=== PATIENT | female | born 1930 | race Caucasian/White ===

== ENCOUNTER 2016-10-22 09:10 | Emergency (ER) | payer MEDICARE ==
[2016-10-22 09:50] LABS: BASOPHILS 0.2 % (0.0-2.0); EOSINOPHILS 0.2 % (0-7); HEMATOCRIT 40.2 % (36.0-48.0); HEMOGLOBIN 12.9 g/dL (12-16); IMMATURE GRANULOCYTES 0.1 % (0-5); LYMPHOCYTES 4.6 % (15-50); MCHC 32.1 g/dL (31.0-37.0); MCV 93.5 fL (80.0-100.0); MEAN PLATELET VOLUME 9.2 fL (7.4-10.4); MONOCYTES 5.9 % (2-11); PLATELET COUNT 201 10x3/uL (130-400); WBC 8.3 10x3/uL (4.8-10.8)
[2016-10-22 10:05] LABS: ALBUMIN 3.3 g/dL (3.4-5.0); ALKALINE PHOSPHATASE 77 U/L (46-116); ALT (SGPT) 19 U/L (10-68); CALC OSMOLALITY 263 mosm/kg (275-300); CARBON DIOXIDE 28.2 mmol/L (21.0-32.0); CHLORIDE - SERUM 97 mmol/L (98-107); CREATININE - SERUM 0.7 mg/dL (0.6-1.3); GLUCOSE 136 mg/dL (74-106); POTASSIUM - SERUM 3.9 mmol/L (3.5-5.1); PROTEIN - SERUM 7.6 g/dL (6.4-8.2); SODIUM 131 mmol/L (136-145); UREA NITROGEN 11 mg/dL (7-18); eGFR NON AFRICAN AMERICAN 84 mL/min (90-120)
[2017-01-16 10:27] VITALS: BMI 20.1
== END 2016-10-22 12:36 | disposition home or self-care (01) ==
LOC: D.ER 09:10
PROVIDERS: Emergency Medicine Emergency Medical Services
DX: K52.9 Noninfective gastroenteritis and colitis, unspecified (principal); K92.1 Melena; R55 Syncope and collapse; I10 Essential (primary) hypertension; J84.10 Pulmonary fibrosis, unspecified

== ENCOUNTER 2016-12-02 14:49 | Inpatient (IN) | payer MEDICARE ==
[~2016-12-02] VITALS: Ht 157.5 cm; Wt 47.9 kg
[2016-12-02 15:32] LABS: BASOPHILS 0.6 % (0.0-2.0); EOSINOPHILS 4.4 % (0-7); HEMATOCRIT 36.8 % (36.0-48.0); HEMOGLOBIN 12.1 g/dL (12-16); IMMATURE GRANULOCYTES 0.2 % (0-5); LYMPHOCYTES 6.2 % (15-50); MCH 29.6 pg (26.0-34.0); MCHC 32.9 g/dL (31.0-37.0); MEAN PLATELET VOLUME 9.1 fL (7.4-10.4); MONOCYTES 8.5 % (2-11); NEUTROPHILS 80.1 % (40-80); RBC 4.09 10x6/uL (4.00-5.40); RDW 13.2 % (11.5-14.5); WBC 8.1 10x3/uL (4.8-10.8)
[2016-12-02 15:57] LABS: PLATELET COUNT 313 10x3/uL (130-400)
[2016-12-02 16:23] LABS: ALBUMIN 2.7 g/dL (3.4-5.0); ALKALINE PHOSPHATASE 68 U/L (46-116); ALT (SGPT) 16 U/L (10-68); BILIRUBIN - TOTAL 0.46 mg/dL (0.2-1.3); CALC OSMOLALITY 272 mosm/kg (275-300); CALCIUM 8.3 mg/dL (8.5-10.1); CARBON DIOXIDE 28.3 mmol/L (21.0-32.0); CHLORIDE - SERUM 100 mmol/L (98-107); CREATININE - SERUM 0.6 mg/dL (0.6-1.3); GLUCOSE 143 mg/dL (74-106); POTASSIUM - SERUM 4.2 mmol/L (3.5-5.1); PROTEIN - SERUM 6.4 g/dL (6.4-8.2); SODIUM 135 mmol/L (136-145); UREA NITROGEN 16 mg/dL (7-18); eGFR NON AFRICAN AMERICAN > 90 mL/min (90-120)
[2016-12-02 16:31] LABS: PRO BNP 403 pg/mL (0-450)
[2016-12-02 16:45] LABS: TROPONIN-I < 0.017 ng/mL (0.000-0.060)
--- NOTE | 2016-12-02 18:47 | NUR ---
RECEIVED TO ROOM 2135 VIA STRETCHER FROM ER ALERT AND ORIENTED X3 86 Y/[address] BY [address] THAO FOR EXAC. PULMONARY FIBROSIS. ON O2 @ 5L VIA OXIMIZER, SOB NOTED, WHEEZING AND DYSPNEA NOTED. USES CANE TO AMBULATE. RT AC SL INTACT WITH NO R/S NOTED AT SITE. ASSIST TO BED W/O DIFF. ORIENTATION TO UNIT, ROOM, BED, PHONE, TV, C/L GIVEN WITH UNDERSTANDING VERBALIZED. HOB UP SR UP X2, C/L IN REACH. CONTINUE TO MONITOR.
[2016-12-02] MEDS ORDERED: PRINIVIL20 MG PO (19:15)
[2016-12-02] MEDS ORDERED: SINGULAIR10 MG PO (19:15)
[2016-12-02] MEDS ORDERED: ECOTRIN325 MG PO (19:16)
[2016-12-02] MEDS ORDERED: CALCIUM 600 +1 EAC3 PO (19:18)
[2016-12-02] MEDS ORDERED: STRESSTABS WITH1 TAB PO (19:19)
[2016-12-02 20:00] VITALS: BP 164/77
[2016-12-03] VITALS (7 sets, daily range): BP systolic 129–185; BP diastolic 64–93; Ht 157.5 cm; Wt 47.9 kg
--- NOTE | 2016-12-03 02:51 | NUR ---
EYES CLOSED, RESP UNLAB WITH BIPAP IN USE PER MD ORDERS. NO S/S OF ACUTE DISTRESS NOTED. C/L IN REACH. CONTINUE TO MONITOR.
--- NOTE | 2016-12-03 08:25 | NUR ---
LYING IN BED WITH BIPAP ON. NO DISTRESS. SOB WILL CONTINUE TO MONITOR.
--- NOTE | 2016-12-03 11:29 | NUR ---
DR HENRY HERE AND ORDERED TELEMETRY. MONITOR PLACED WITH ST @ 101
--- NOTE | 2016-12-03 16:52 | NUR ---
IV RE-SITED TO RIGHT FA WITH 22G X 1 STICK IT WAS IN THE AC AND PATIENT WAS COMPLAINING ABOUT IT BEEPING ALL THE TIME FROM HER ARM BENDING. WILL CONTINUE TO MONITOR.
--- NOTE | 2016-12-03 20:00 | NUR ---
PT RESTING IN BED. IVF AT KVO TO RFA. O2 @ 5L/OXIMISER IN PLACE. PT WITH SOB AND DYSPNEA WITH TALKING. SAYS SHE HAS TO TALK AND DO THINGS VERY SLOWLY TO KEEP FROM LOSING HER BREATH. ON LOVENOX FOR DVT PROTOCOL. PLANS FOR POSSIBLE REHAB PENDING. SEE ASSESSMENT.
[2016-12-04 00:38] VITALS: BP 167/91
--- NOTE | 2016-12-04 03:40 | NUR ---
RESTING IN BED WITH NO DISTRESS. CPOC.
[2016-12-04 05:04] VITALS: BP 137/79
[2016-12-04 05:30] LABS: BASOPHILS 0 % (0.0-2.0); EOSINOPHILS 0 % (0-7); HEMATOCRIT 32.7 % (36.0-48.0); HEMOGLOBIN 10.4 g/dL (12-16); IMMATURE GRANULOCYTES 0.3 % (0-5); LYMPHOCYTES 3.8 % (15-50); MCH 28.7 pg (26.0-34.0); MCHC 31.8 g/dL (31.0-37.0); MCV 90.3 fL (80.0-100.0); MEAN PLATELET VOLUME 8.8 fL (7.4-10.4); MONOCYTES 2.3 % (2-11); NEUTROPHILS 93.6 % (40-80); PLATELET COUNT 294 10x3/uL (130-400); RBC 3.62 10x6/uL (4.00-5.40); RDW 13.2 % (11.5-14.5); WBC 10.1 10x3/uL (4.8-10.8)
[2016-12-04 06:03] LABS: ANION GAP 13.5 mmol/L (8-16); CALCIUM 8.8 mg/dL (8.5-10.1); CARBON DIOXIDE 24.9 mmol/L (21.0-32.0); MAGNESIUM - SERUM 2.4 mg/dL (1.8-2.4); PHOSPHOROUS 3.4 mg/dL (2.5-4.9); POTASSIUM - SERUM 4.4 mmol/L (3.5-5.1)
[2016-12-04 06:32] LABS: CREATININE - SERUM 0.8 mg/dL (0.6-1.3)
--- NOTE | 2016-12-04 07:36 | NUR ---
RESTING ON LEFT SIDE WITH EYES CLOSED. RESP APPEAR EVEN AND NON LABORED. ON 5L PER OXIMIZER, BIBPAP AT BEDSIDE. ON HEART MONITOR SHOWING SR, HR 93. RIGHT FA SEEN WITH NS INFUSING AT 10 CC/HR WITHOUT PROBLEMS. WILL CONTINUE TO MONITOR.
[2016-12-04 08:33] VITALS: BP 137/88
--- NOTE | 2016-12-04 09:07 | NUR ---
PATIENT HAS BEEN MADE NPO FOR CT SCAN TODAY. THIS WAS NOT GIVEN TO ME IN REPORT THIS AM.
--- NOTE | 2016-12-04 12:00 | NUR ---
OUT OF ROOM AT THIS TIME.
--- NOTE | 2016-12-04 12:04 | NUR ---
BACK TO ROOM
[2016-12-04 12:05] VITALS: BP 158/66
--- NOTE | 2016-12-04 13:17 | NUR ---
Nutrition follow-up: Diet: Regular PO intake ~60% average of meals Labs reviewed Wt: 110# Visited with pt during breakfast; pt is very happy with meals being served. Will continue to provide food choices and honor food preferences. RDN following.
[2016-12-04 16:27] VITALS: BP 150/81
--- NOTE | 2016-12-04 18:02 | NUR ---
SITTING UP IN BED WORKING CROSSWORD PUZZLE, DENIES NEEDS AT PRESENT TIME. WILL CONTINUE TO MONITOR.
--- NOTE | 2016-12-04 18:26 | NUR ---
DR HENRY IS NOTIFIED THAT PATIENT HAS BEEN ON ASA AND LOVENOX. STATES THAT THAT IS OKAY.
--- NOTE | 2016-12-04 18:35 | NUR ---
1830-PERMIT FOR BRONCH SIGNED AND WITNESSED, PLACED ON CHART.
[2016-12-04 19:09] LABS: BASOPHILS 0 % (0.0-2.0); EOSINOPHILS 0 % (0-7); HEMATOCRIT 31.8 % (36.0-48.0); IMMATURE GRANULOCYTES 0.3 % (0-5); LYMPHOCYTES 1.9 % (15-50); MCH 28.7 pg (26.0-34.0); MCHC 31.4 g/dL (31.0-37.0); MCV 91.1 fL (80.0-100.0); MEAN PLATELET VOLUME 8.7 fL (7.4-10.4); MONOCYTES 2.3 % (2-11); NEUTROPHILS 95.5 % (40-80); PLATELET COUNT 281 10x3/uL (130-400); RBC 3.49 10x6/uL (4.00-5.40); RDW 13.4 % (11.5-14.5)
[2016-12-04 19:17] LABS: APTT 28.4 SECONDS (22.8-39.4); INR 1.1 (0.85-1.17); PROTIME 14.1 SECONDS (11.6-15.0)
--- NOTE | 2016-12-04 19:42 | NUR ---
STATION JAILER AT BEDSIDE TO OBTAIN VITALS, CALL LIGHT IN REACH. WILL CONTINUE WITH PLAN OF CARE.
[2016-12-04 20:00] VITALS: BP 163/81
--- NOTE | 2016-12-04 20:09 | NUR ---
RESTING IN BED. CURRENTLY RECEIVING UPDRAFT. ALERT ORIENTED CONVERSANT. DENIES NEEDS. NO ACUTE DISTRESS NOTED.
[2016-12-05] VITALS (10 sets, daily range): BP systolic 123–177; BP diastolic 63–87
[2016-12-05 05:19] LABS: BASOPHILS 0 % (0.0-2.0); EOSINOPHILS 0 % (0-7); HEMATOCRIT 30.5 % (36.0-48.0); HEMOGLOBIN 9.6 g/dL (12-16); IMMATURE GRANULOCYTES 0.1 % (0-5); LYMPHOCYTES 2.8 % (15-50); MCH 28.4 pg (26.0-34.0); MCHC 31.5 g/dL (31.0-37.0); MCV 90.2 fL (80.0-100.0); MEAN PLATELET VOLUME 8.9 fL (7.4-10.4); MONOCYTES 1.9 % (2-11); NEUTROPHILS 95.2 % (40-80); PLATELET COUNT 285 10x3/uL (130-400); RBC 3.38 10x6/uL (4.00-5.40); RDW 13.4 % (11.5-14.5); WBC 8.3 10x3/uL (4.8-10.8)
[2016-12-05 05:54] LABS: APTT 24.7 SECONDS (22.8-39.4); INR 1.17 (0.85-1.17); PROTIME 14.8 SECONDS (11.6-15.0)
[2016-12-05 05:57] LABS: CALC OSMOLALITY 281 mosm/kg (275-300); CALCIUM 8.4 mg/dL (8.5-10.1); CARBON DIOXIDE 27.2 mmol/L (21.0-32.0); CHLORIDE - SERUM 104 mmol/L (98-107); CREATININE - SERUM 0.6 mg/dL (0.6-1.3); GLUCOSE 137 mg/dL (74-106); MAGNESIUM - SERUM 2.2 mg/dL (1.8-2.4); PHOSPHOROUS 3.2 mg/dL (2.5-4.9); SODIUM 138 mmol/L (136-145); UREA NITROGEN 23 mg/dL (7-18); eGFR NON AFRICAN AMERICAN > 90 mL/min (90-120)
[2016-12-05 05:58] LABS: POTASSIUM - SERUM 3.7 mmol/L (3.5-5.1)
--- NOTE | 2016-12-05 07:35 | NUR ---
PATIENT WAS ON BIPAP FIRST THING THIS AM. ASSISTED HER OFF OF IT AND PLACED HER BACK ON O2 AT 2L PER NC. ASSISTED TO BSC TO VOID. RIGHT FA SEEN WITH NS INFUSING AT KVO. ON HEART MONITOR SHOWING ST, HR 104. NPO FOR BRONCH TODAY. CALL LIGHT IN REACH, WILL CONTINUE TO MONITOR.
--- NOTE | 2016-12-05 09:44 | NUR ---
0945-TO RT FOR BRONCH. PRE OP MEDS GIVEN.
--- NOTE | 2016-12-05 09:58 | NUR ---
Patient Name: WLILY LARRY Admission Status: ER Accout number: [id number] Admission Date: 12-02-2016 : 1930 Admission Diagnosis:SHORTNESS OF BREATH Attending: JOSEFINA Current LOS: 3 Anticipated DC Date: Planned Disposition: Home Primary Insurance: [employer] MARIA ALEJANDRA [employer] [facility] PF Discharge Planning Comments: * Is the patient Alert and Oriented? Yes 0 * How many steps to enter\\exit or inside your home? NONE 0 * PCP DR. SHIRLEY 0 * Pharmacy [facility] 0 * Preadmission Environment Home Alone 0 * ADLs Independent 0 * Equipment Cane Oxygen Walker 0 * Other Equipment OXYGEN AT NIGHT ONLY [facility] - MEDICAL EQUIPMENT PROVIDER 0 * List name and contact numbers for known caregivers / representatives who currently or will assist patient after discharge: BRANDY KING, FRIEND, 0 * Community resources currently utilized Private Duty Care 0 * Please name any agencies selected above. PRIVATE PAY ART CONSERVATOR, 1 DAY PER WEEK, 4 HOURS PER DAY (HOUSEKEEPING AND ERRANDS) 0 * Additional services required to return to the preadmission environment? No 0 * Can the patient safely return to the preadmission environment? Yes 0 * Has this patient been hospitalized within the prior 30 days at any hospital? No 0 CM MET WITH PT IN ROOM TO DISCUSS DISCHARGE PLANNING AND NEEDS. PT REPORTS LIVING AT HOME INDEPENDENTLY AND ALONE. PT HAS A CANE, WALKER AND HOME OXYGEN FROM [facility]. PT REPORTS SHE IS ORDERING A PORTABLE OXYGEN CONCENTRATOR FOR HERSELF FROM [employer]. PT HAS A PRIVATELY HIRED ART CONSERVATOR TO ASSIST HER NEEDED. CM DISCUSSED AVAILABILITY OF HOME HEALTH, REHAB SERVICES AND MEDICAL EQUIPMENT. PT DENIES DISCHARGE NEEDS IF SHE CAN GET BACK TO HER "NEW NORMAL" BUT WILL CONSIDER HOME HEALTH IF THE DOCTOR FEELS SHE NEEDS IT. PT REPORTS HER FRIEND WILL PICK HER UP FOR DISCHARGE HOME. PT PLANS TO DISCHARGE HOME ALONE, DENIES DISCHARGE NEEDS AT THIS TIME; PT WILL CONSIDER HOME HEALTH IF THE DOCTOR FEELS SHE NEEDS IT. CM TO FOLLOW AND ASSIST NEEDED. Freezer Tunnel Operator: George Sanders
--- NOTE | 2016-12-05 10:43 | NUR ---
1040-RETURNS FROM BRONCH, TOLERATED WELL. SLEEPY. VSS, WILL CONTINUE TO MONITOR. STILL NPO X 2 HOURS. CALL LIGHT IN USE
[2016-12-06 01:09] VITALS: BP 149/87
[2016-12-06 03:10] LABS: MYCOPLASMA PNEUMO IGG 335 U/mL (0-99)
[2016-12-06 05:23] VITALS: BP 167/82
--- NOTE | 2016-12-06 07:24 | NUR ---
RECEIVED PT REPORT. NO OTHER NEEDS AT THIS TIME. WILL CONTINUE TO MONITOR. WILL CONTINUE PLAN OF CARE.
[2016-12-06 08:09] VITALS: BP 182/92
--- NOTE | 2016-12-06 10:46 | NUR ---
PT IS ALERT. ASSESSMENT DONE PER FLOWSHEET. NO OTHER NEEDDS AT THIS TIME. WILL CONTINUE TO MONITOR.
[2016-12-06 11:36] VITALS: BP 180/102
--- NOTE | 2016-12-06 13:51 | NUR ---
PT IS ALERT. NO SS OF DISTRESS AT THIS TME. WILL CONTINUE TO MONITOR.
[2016-12-06 15:37] VITALS: BP 164/95
--- NOTE | 2016-12-06 19:30 | NUR ---
SITTING UP IN BED WATCHING TV. VOICES NO C/O PAIN OR DISCOMFORT. O2 @2L NC. RESP UNLAB. USES BSC W/O ASSISTANCE, BILLIE WELL.C/L IN REACH. CONTINUE TO MONITOR,
--- NOTE | 2016-12-06 19:50 | NUR ---
PT. SITTING IN BED WITH HOB UP FOR COMFORT WATCHING TV. PT. C/O INABILITY TO BREATH CAUSE SHE'S STUFFED UP. GOT HUMIDIFIED WATER FOR O2 TO HELP WITH DRIED NASAL PASSAGE WAYS. ASSESSMENT COMPLETED. CALL LIGHT WITHIN REACH.
[2016-12-06 20:04] VITALS: BP 165/82
[2016-12-06 20:07] LABS: AFB SPECIMEN PROCESSING Concentration (())
--- NOTE | 2016-12-06 22:04 | NUR ---
PT. IN BED WITH HOB UP FOR COMFORT AND WATCHING TV. NO VOICED NEEDS AT THIS TIME AND SHE HAS HER CALL LIGHT WITHIN REACH.
--- NOTE | 2016-12-07 00:08 | NUR ---
PT. IN BED WITH HOB UP FOR COMFORT AND LYING ON HER RIGHT SIDE. EYES ARE CLOSED AND RESP. ARE EVEN, O2 @2L/MIN VIA N/C AND CALL LIGHT WITHIN REACH.
[2016-12-07 00:30] VITALS: BP 175/93
--- NOTE | 2016-12-07 02:04 | NUR ---
PT. CONTINUES TO BE IN BED WITH HOB UP FOR COMFORT AND LYING ON HER RIGHT SIDE WITH EYES CLOSED AND RESP. DEEP AND EVEN. CALL LIGHT WITHIN REACH.
--- NOTE | 2016-12-07 04:06 | NUR ---
PT. IN BED WITH HOB UP FOR COMFORT AND IS LYING ON HER LEFT SIDE WITH EYES CLOSED AND RESP. EVEN. CALL LIGHT WITHIN REACH.
[2016-12-07 04:30] VITALS: BP 161/86
--- NOTE | 2016-12-07 07:06 | NUR ---
PT IS ALERT. RECEIVED PT REPORT. NO OTHER NEEDS AT THIS TIME. WILL CONTINUE PLAN OF CARE.
[2016-12-07 07:34] VITALS: BP 178/85
--- NOTE | 2016-12-07 10:49 | NUR ---
PT IS ALERT. ASSESSMENT DONE PER FLOWSHEET. NO OTHER NEEDS AT THIS TIME. WILL CONTINUE TO MONTIOR
[2016-12-07 11:36] VITALS: BP 157/87
[2016-12-07 15:32] VITALS: BP 162/89
[2016-12-07 20:36] VITALS: BP 172/84
--- NOTE | 2016-12-07 21:19 | NUR ---
PATIENT'S INSPECTOR ELECTROMECHANICAL, LM WEISS, , VISITED THE LATE AFTERNOON. HE REQUESTED CM TO VISIT W/ THE PATIENT SHE WANTS TO BE DISCHARGED TO [facility] AND REHAB. SHE SAID SHE IS NOT ABLE TO MANAGE AT HOME ALONE. PT' SON LIVES IN [place]. CM WENT TO VISIT W/ THE PATIENT. THE YITXAL THERAPIST HAD HER SITTING ON THE SIDE OF THE BED. HER OXYGEN WAS ON. SHE WAS STATING SHE WAS FEELING SHORT OF BREATH AND DIZZY. CM SPOKE W/ PATIENTBRIEFLY, STATING I UNDERSTOOD SHE WANTS TO GO TO [place]. SHE STATED, YES. CM WILL FOLLOW UP W/ PATIENT'S DISCHARGE PLAN TO [place] ON THURSDAY.
[2016-12-08 01:24] VITALS: BP 161/70
[2016-12-08 05:20] LABS: BASOPHILS 0 % (0.0-2.0); EOSINOPHILS 0.2 % (0-7); HEMATOCRIT 35.2 % (36.0-48.0); HEMOGLOBIN 11.1 g/dL (12-16); IMMATURE GRANULOCYTES 0.5 % (0-5); LYMPHOCYTES 7.2 % (15-50); MCH 28.3 pg (26.0-34.0); MCHC 31.5 g/dL (31.0-37.0); MCV 89.8 fL (80.0-100.0); MEAN PLATELET VOLUME 8.6 fL (7.4-10.4); MONOCYTES 1.3 % (2-11); NEUTROPHILS 90.8 % (40-80); PLATELET COUNT 276 10x3/uL (130-400); RBC 3.92 10x6/uL (4.00-5.40); RDW 13.1 % (11.5-14.5); WBC 6.2 10x3/uL (4.8-10.8)
[2016-12-08 05:56] LABS: % SATURATION 13 % (15-55); IRON 27 ug/dl (35-150); TOTAL IRON BIND CAPACITY 201 ug/dl (260-445); UNSAT IRON BIND CAPACITY 174 ug/dl (150-375)
[2016-12-08 06:00] LABS: CARBON DIOXIDE 31.7 mmol/L (21.0-32.0); CHLORIDE - SERUM 100 mmol/L (98-107); CREATININE - SERUM 0.7 mg/dL (0.6-1.3); FERRITIN 51 ng/mL (3-244); GLUCOSE 139 mg/dL (74-106); MAGNESIUM - SERUM 2.7 mg/dL (1.8-2.4); PHOSPHOROUS 4.3 mg/dL (2.5-4.9); POTASSIUM - SERUM 4.5 mmol/L (3.5-5.1); SODIUM 136 mmol/L (136-145); eGFR NON AFRICAN AMERICAN 84 mL/min (90-120)
[2016-12-08 06:09] LABS: CALC OSMOLALITY 277 mosm/kg (275-300); CALCIUM 8.3 mg/dL (8.5-10.1); UREA NITROGEN 23 mg/dL (7-18)
[2016-12-08 06:26] VITALS: BP 163/93
--- NOTE | 2016-12-08 07:36 | NUR ---
AM ROUNDING- PT SITTING UP IN BED WITH EYES OPEN CURRENTLY APPLYING MAKEUP ON. ON MONITOR SHOWING SR, HR 99. PT IS UP AD [place] AND USES BEDSIDE COMMODE. ALERT AND ORIENTED. ON 02 AT 2L VIA NC. IV SEEN TO RIGHT FOREARM THAT IS CURRENTLY SALINE LOCKED AND PATENT. 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 NO NEED AT CURRENT TIME. WILL CONTINUE TO MONITOR.
[2016-12-08 07:43] VITALS: BP 151/88
--- NOTE | 2016-12-08 11:13 | NUR ---
Patient Name: WILLY LARRY Encounter No: [id number] : 1930 Primary Insurance: [facility] MARIA ALEJANDRA ADVANTAGE [facility] PFFS Anticipated DC Date: 12-10-2016 Planned Disposition: Halfway Facility External Planned Provider: [facility], MEDICARE REHAB BED DCP follow-up note: CM RECEIVED ORDER, REVIEWED CHART, MET WITH PT IN ROOM TO DISCUSS REHAB OPTIONS. PT REPORTS SHE WANTS TO GO TO [facility] SHE HAS FRIENDS IN REHAB THERE. CHOICE SIGNED. IMPORTANT MESSAGE FROM MEDICARE PROVIDED AND EXPLAINED. CM CALLED [facility], , SPOKE TO ESPINOZA, REQUESTED REHAB BED FOR ADMIT ON THURSDAY; ESPINOZA REPORTED SHE MAY HAVE AVAILABLE REHAB BEDS. CM FAXED REFERRAL TO [facility] AT [phone]. CM WAITING ADMISSION DETERMINATION / INSURANCE AUTHORIZATION FOR REHAB AT [facility]. George Sanders, CASE MANAGEMENT
[2016-12-08 12:07] VITALS: BP 171/97
[2016-12-08 13:47] LABS: FUNGUS STAIN Final report (())
--- NOTE | 2016-12-08 15:57 | NUR ---
CALLED DR. URIBE OFFICE, SPOKE WITH HIS NURSE ANKUR. I INFORMED ANKUR THAT PTS BLOOD PRESSURES HAVE BEEN RUNNING OVER 170 SYSTOLIC AND I DIDN'T KNOW IF THERE WAS SOMETHING PRN I COULD GIVE HER. ANKUR NOTIFIED DR. THAO WHO WAS BESIDE HER, SHE STATED DR. THAO DID NOT WANT TO ADD ANYTHING. NO NEW ORDERS RECEIVED. WILL CONTINUE TO MONITOR.
[2016-12-08 16:15] VITALS: BP 172/84
--- NOTE | 2016-12-08 17:03 | NUR ---
Patient Name: WILLY LARRY Encounter No: [id number] : 1930 Primary Insurance: [facility] PFFS Anticipated DC Date: 12-10-2016 Planned Disposition: Chcf Facility External Planned Provider: [facility], MEDICARE REHAB BED DCP follow-up note: CM RECEIVED CALL FROM CASEY OF [facility], , [facility] TO ACCEPT PT FOR REHAB AND TO ADMIT ON THURSDAY; FOR DISCHARGE TO [facility] ON 12-10-16, NURSE REPORT TO BE CALLED TO [facility] AT [phone], FAX DISCHARGE INFORMATION TO [phone]. [facility] TO ARRANGE VAN TRANSPORTATION. George Sanders, CASE MANAGEMENT
--- NOTE | 2016-12-08 18:52 | NUR ---
PT SITTING UP IN BED WITH EYES OPEN WATCHING TV. NO NEED AT CURRENT TIME. WILL CONTINUE TO MONITOR.
[2016-12-08 20:00] VITALS: BP 132/74
[2016-12-09] VITALS: BP 159/85
--- NOTE | 2016-12-09 | NUR ---
NURSE ROUNDS 19:30 - PT AWAKE, ALERT, ORIENTED, DENIES ANY NEEDS. CONTINUE TO MONITOR CLOSELY.
[2016-12-09 04:00] VITALS: BP 148/80
--- NOTE | 2016-12-09 07:57 | NUR ---
AM ROUNDING- PT IS SITTING UP IN BED WITH HOB ELEVATED AT 30 DEGREES. PT IS ALERT AND ORIENTED. ON 02 AT 2L VIA NC. PT IS VERY HARD OF HEARING, HAS HEARING AIDS IN. IV SEEN TO RIGHT FOREARM THAT IS CURRENTLY SALINE LOCKED AND PATENT. BEDSIDE COMMODE AT BEDSIDE. ON MONITOR SHOWING SR, HR 78. 0725- DR. SHIRLEY IN ROOM, ASKED HIM ABOUT GETTING PT SOMETHING FOR CONSITPATION AND RESTARTING ON LOVENOX SINCE IT WAS STILL BEING HELD. DR. SHIRLEY SAID HE WOULD TAKE CARE OF IT.
[2016-12-09 08:01] VITALS: BP 160/82
[2016-12-09 12:15] VITALS: BP 155/74
--- NOTE | 2016-12-09 13:46 | NUR ---
Nutrition follow-up: Diet: Regular PO intake ~75% of meals +BM Labs reviewed Wt: 123# PO intake remains good at this time RDN following.
[2016-12-09 15:36] VITALS: BP 160/78
--- NOTE | 2016-12-09 18:09 | NUR ---
PT SITTING UP IN BED WITH EYES OPEN WATCHING TV. PT DENIES ANY NEED AT CURRENT TIME. WILL CONTINUE TO MONITOR.
--- NOTE | 2016-12-09 19:25 | NUR ---
RECEIVED REPORT , 2L, IV-RFA-SL, [id number], DENIES ANY NEEDS, BED IS LOW, SRX2, CALL LIGHT IN REACH, WILL CONTINUE TO MONITOR
[2016-12-09 21:04] VITALS: BP 150/94
[2016-12-10 01:48] VITALS: BP 190/102
--- NOTE | 2016-12-10 03:15 | NUR ---
ASSESSMENT COMPLETE, PT SLEEPING, CALL LIGHT IN REACH
--- NOTE | 2016-12-10 04:00 | NUR ---
PARKS WORKER AT BEDSIDE FOR VS. CONT TO MONITOR.
[2016-12-10 05:05] VITALS: BP 150/84
[2016-12-10] MEDS ORDERED: XOPENEX 0.0.63 MG/3 UPD (07:32)
[2016-12-10] MEDS ORDERED: MUCINEX DM ER1 EAC1 PO (07:33)
[2016-12-10] MEDS ORDERED: PULMICORT0.5 MG/21 UPD (07:33)
[2016-12-10] MEDS ORDERED: PEPCID20 MG PO (07:34)
[2016-12-10] MEDS ORDERED: TESSALON PERLE100 MG PO (07:34)
[2016-12-10] MEDS ORDERED: MEDROL DOSE PACK4 MG PO (07:35)
[2016-12-10 08:31] VITALS: BP 171/90
--- NOTE | 2016-12-10 10:20 | NUR ---
Patient Name: WILLY LARRY Encounter No: [id number] : 1930 Primary Insurance: [facility] MARIA ALEJANDRA ADVANTAGE [facility] PFFS Anticipated DC Date: 12-10-2016 Planned Disposition: Snf Facility External Planned Provider: [facility], MEDICARE REHAB BED DCP follow-up note: CM RECEIVED DISCHARGE ORDER, CALLED AND SPOKE TO CASEY AT [facility], WHO ARRANGED VAN TRANSPORT FOR 1030 HOURS. PT NOTIFIED WHO IS IN AGREEMENT WITH DISCHARGE TO [facility] TODAY, HER FRIEND WILL ASSIST WITH BRINGING PT'S BELONGINGS FROM HOSPTIAL ROOM, PT DENIES NEED OF ASSISTANCE TO NOTIFY FAMILY OR FRIENDS SHE HAS ALREADY DONE IT. BEDSIDE NURSE AND ENGLISH COMPOSITION TEACHER NURSE NOTIFIED. CM FAXED DISCHARGE INFORMATION TO [facility] AT [phone]. NURSE REPORT TO BE CALLED TO [facility] AT [phone], [facility] ARRANGED VAN TRANSPORTATION FOR 1030 AM. George Sanders, CASE MANAGEMENT
--- NOTE | 2016-12-10 10:23 | NUR ---
ALERT AND ORIENTED X4. SITTING UP IN BED. DC RT FA IV TIP INTACT. DISCHARGE INSTRUCTIONS GIVEN VERBALLY AND WRITTEN. PLAN TO DC TO [facility] VIA VAN TRANSPORTATION. REPORT CALLED TO MARIE SWAN AT [phone]. CONTINUE PLAN OF CARE AND SAFETY PRECAUTIONS.
--- NOTE | 2016-12-10 11:01 | NUR ---
TRANSPORTER ARRIVE TO ROOM TO TRANSPORT TO REHAB. ASSIST TO WHEELCHAIR. REMAIN FREE FROM INJURY.
[2016-12-23 09:19] LABS: FUNGUS CULTURE RESULT 1 Candida famata (()); FUNGUS CULTURE RESULT 3 Penicillium species (())
[2017-01-07 11:19] LABS: FUNGUS MYCOLOGY CULTURE Final report (())
--- NOTE | 2017-01-15 14:06 | CN ---
PATIENT NAME:RUTH LARRY MEDICAL RECORD: [id number] : [birth year] LOCATION:D.M2 D.2135 ADMIT DATE: 12/02/16 ACCOUNT: [id number] CONSULTING PHYSICIAN: LEO WHITING MD REFERRING PHYSICIAN: DAVID THAO MD DATE OF CONSULTATION: 12/05/2016 Rheumatology Consultation HISTORY OF PRESENT ILLNESS: Ruth Larry is an 86-year-old woman well-known to me, who I am asked to reevaluate by Dr. Broussard regarding interstitial lung disease. The patient has had interstitial lung disease with pulmonary fibrosis with abnormal chest CT with since January 2015 with scattered ground-glass opacities and alveolar densities. On several occasions, she has had a positive DOMINGO and on several occasions, has a positive anti-Scl-70. Chest was last checked in July 2016 and was still positive. Remainder of a previous DOMINGO profiles have been negative including other serological tests, including a negative ANCA. DOMINGO profile was otherwise normal in February 2015. In spite of the Scl-70, she has never had definite dysphagia or sclerodactyly or any Raynaud's. She does exhibit chronic bibasilar rales. The patient had prolonged bronchitis in August 2016, treated as an outpatient, but continued to have some shortness of breath. In October 2016, she developed gastroenteritis, nausea, hematemesis treated as an outpatient. In 7-10 days before for current admission, she had increasing shortness of breath, but denied fever, chills, sweats, cough, abdominal pain, nausea, vomiting. On admission, chest x-ray showed diffuse interstitial fibrosis and some alveolar densities. CTA performed yesterday did not show any evidence of pulmonary embolus due to extensive fibrotic changes throughout both lung barnett, most pronounced in the lower lobes. Not significantly changed since previous CT and some patchy ground-glass opacities throughout both lung barnett. The patient underwent bronchoscopy today showing some tracheal inflammation and small bilateral mucous plugs. There was also seen in the right upper and lower lobes. The patient is currently being treated with Solu-Medrol 60 mg every 8 hours, Zithromax 500 mg IV daily, Rocephin 1 gram IV daily, Tessalon 100 mg p.r.n. Overall, she thinks maybe slight improvement. She denies dysphagia, reflux, abdominal pain, nausea, and vomiting. On admission, white count normal, hemoglobin 12.1 and creatinine 0.6. She has multiple serologies pending for infection. HOME MEDICATIONS: Oxygen h.s., lisinopril 20 mg daily, Singulair 10 mg daily, Asmanex inhaler b.i.d., Claritin or Love daily, enteric-coated aspirin 325 mg h.s., vitamin D 50,000 units monthly, multivitamin daily, calcium 600 mg with CONSULT REPORT [id number] RUTH LARRY vitamin D t.i.d., vitamin B 3000 mcg daily, Flonase once daily, vitamin C 500 mg daily, fish oil 1-2 in the evening, ipratropium nasal spray. CURRENT MEDICATIONS: Mucinex 1 b.i.d., Xopenex t.i.d., Tessalon 100 mg q.i.d., albuterol, Pepcid 20 mg b.i.d., Pulmicort 0.5 mg b.i.d., Solu-Medrol 60 mg every 8 hours, Xopenex every 6 hours, Atrovent updrafts every 6 hours, Zithromax 500 mg daily, Rocephin 1 gram daily, Lovenox 40 mg subQ daily, aspirin 325 mg daily, and Singulair 10 mg daily. PAST MEDICAL HISTORY: She has no known drug allergies. She diagnosed pulmonary fibrosis in January 2015. She had hysterectomy for precancerous condition, bunionectomy, and rule out fracture of her pelvis. SOCIAL HISTORY: She has never smoked. She rarely drink alcohol in the past. 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 FAMILY HISTORY: Father of colon cancer at age 93. Mother of crippling rheumatoid arthritis at age 77. Three of her siblings are of unreported cause, possibly history of cancer of the breast and colon, hypertension. Grandfather had TB. REVIEW OF SYSTEMS: She denies any recent weight loss, headache, diplopia, dysphagia, frequent reflux, abdominal bloating, constipation, dysuria, urgency, dependent edema. PHYSICAL EXAMINATION: VITAL SIGNS: Blood pressure 150/81, pulse 112 and regular, respirations 21, temperature of 97.9, and O2 saturation 99% on 3 liters. GENERAL: This is an elderly woman, in no acute distress. She has some tachypnea. HEENT: Head: Normal female hair pattern. Eyes: Conjunctivae are clear. Mouth somewhat dry. NECK: Supple. There is no adenopathy in neck, axilla or inguinal areas. Parotid glands not enlarged. LUNGS: Reveal stable bibasilar crackling and rales to scapular tips posteriorly and some anterior. There is no wheeze or rub. CARDIOVASCULAR: S1, S2 are normal without gallop, murmur or rub. Carotid arteries 2+ without delay or bruit. Radial pulse 2+, pedal pulses 1+. There is no dependent edema. ABDOMEN: Soft, slightly full, nontender without mass, organomegaly or guarding. MUSCULOSKELETAL: All joints of the upper and lower extremities have excellent range of motion without discomfort or swelling. SKIN: Without sclerodactyly, purpura, petechiae. She has 1 pinpoint telangiectasia of one finger. DIAGNOSES: 1. Interstitial lung disease. A. 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 B. Abnormal chest CT with pulmonary fibrosis and ground glass changes on CT since 2014. C. Repeatedly positive anti-Scl-70. D. No evidence of sclerodactyly. E. No history of Raynaud. F. No definite evidence of esophageal dysphagia. 2. Recent increasing shortness of breath without any cough, fever or chills. CONSULT REPORT [id number] RUTH LARRY 3. Abnormal bronchoscopy with signs of inflammation, mucous plugs more suggestive of intrabronchial inflammatory condition, rather than worsening interstitial lung disease. 4. Episode of gastroenteritis, October 2016. RECOMMENDATIONS: 1. Agree with continued broad-spectrum antibiotics. 2. Continue with high dose steroids. If improves, anticipated gradually tapered. 3. Observe response. Continue bronchodilators. 4. Await culture and serological results for infection. 5. Monitor for clinical course. If does not improve, we will have to consider whether or not her current problem is exacerbation of interstitial lung disease with ____ connective tissue disease. DISCUSSION: The patient's clinical course is more suggestive of persistent intrabronchial inflammation and may respond to current treatment. This less likely is represents a flare of her underlying connective tissue disease. Hopefully, she can be on a short tapering course of steroids. Very reluctant to consider if amenable to chronic corticosteroids or immunosuppressor drugs which would be fraught with side effects at her advanced age and significant risk complications including infections. TRANSINT:[id number] Voice Confirmation ID: [id number] DOCUMENT ID: [id number] LEO WHITING MD Manually Signed by LEO WHITING CC: [id number] DICTATION DATE: 12/05/161903 FIELD HOCKEY AND LACROSSE COACH: 12/06/16 0039 ADM IN [facility] [address] [id number]
[2017-01-23 11:18] LABS: ACID FAST CULTURE Negative (()); ACID FAST SMEAR Negative (())
== END 2016-12-10 11:03 | DRG 196 ==
LOC: D.ER 14:49 → D.M2 18:14
PROVIDERS: Emergency Medicine; Family Medicine; Internal Medicine Pulmonary Disease; ADMIT Family Medicine
PROC: 5A09457 Assistance with Respiratory Ventilation, 24-96 Consecutive Hours, Continuous Positive Airway Pressure (ICD-10-PCS; principal; 2016-12-03)
PROC: 0BB78ZX Excision of Left Main Bronchus, Via Natural or Artificial Opening Endoscopic, Diagnostic (ICD-10-PCS; 2016-12-05)
PROC: 0BB38ZX Excision of Right Main Bronchus, Via Natural or Artificial Opening Endoscopic, Diagnostic (ICD-10-PCS; 2016-12-05)
DX: J84.10 Pulmonary fibrosis, unspecified (principal); J96.21 Acute and chronic respiratory failure with hypoxia; J44.9 Chronic obstructive pulmonary disease, unspecified; R00.0 Tachycardia, unspecified; J30.9 Allergic rhinitis, unspecified; I08.2 Rheumatic disorders of both aortic and tricuspid valves; M34.9 Systemic sclerosis, unspecified; I10 Essential (primary) hypertension; D64.9 Anemia, unspecified

== ENCOUNTER 2017-01-15 10:02 | Inpatient (IN) | payer MEDICARE ==
[~2017-01-15] VITALS: Ht 157.5 cm; Wt 51.5 kg
[~2017-01-15 10:02] MED LIST: CALCIUM 600 +1 EAC3 PO; ECOTRIN325 MG PO; MEDROL DOSE PACK4 MG PO; MUCINEX DM ER1 EAC1 PO; PEPCID20 MG PO; PRINIVIL20 MG PO; PULMICORT0.5 MG/21 UPD; SINGULAIR10 MG PO; STRESSTABS WITH1 TAB PO; TESSALON PERLE100 MG PO; XOPENEX 0.0.63 MG/3 UPD
[2017-01-15 10:39] LABS: BASOPHILS 0.9 % (0.0-2.0); EOSINOPHILS 5.4 % (0-7); HEMATOCRIT 37.5 % (36.0-48.0); HEMOGLOBIN 11.8 g/dL (12-16); IMMATURE GRANULOCYTES 0.2 % (0-5); LYMPHOCYTES 10.7 % (15-50); MCH 28.4 pg (26.0-34.0); MCHC 31.5 g/dL (31.0-37.0); MCV 90.1 fL (80.0-100.0); MEAN PLATELET VOLUME 9.3 fL (7.4-10.4); MONOCYTES 6.9 % (2-11); NEUTROPHILS 75.9 % (40-80); PLATELET COUNT 224 10x3/uL (130-400); RBC 4.16 10x6/uL (4.00-5.40); RDW 14.4 % (11.5-14.5); WBC 6.6 10x3/uL (4.8-10.8)
[2017-01-15 11:07] LABS: ALBUMIN 3.1 g/dL (3.4-5.0); ALKALINE PHOSPHATASE 64 U/L (46-116); ALT (SGPT) 17 U/L (10-68); BILIRUBIN - TOTAL 0.58 mg/dL (0.2-1.3); CALC OSMOLALITY 279 mosm/kg (275-300); CALCIUM 9.1 mg/dL (8.5-10.1); CARBON DIOXIDE 28.9 mmol/L (21.0-32.0); CHLORIDE - SERUM 103 mmol/L (98-107); CREATININE - SERUM 0.7 mg/dL (0.6-1.3); GLUCOSE 100 mg/dL (74-106); PROTEIN - SERUM 6.8 g/dL (6.4-8.2); SODIUM 139 mmol/L (136-145); UREA NITROGEN 17 mg/dL (7-18); eGFR NON AFRICAN AMERICAN 84 mL/min (90-120)
[2017-01-15 11:16] LABS: CREATINE KINASE 39 UL (21-215); PRO BNP 189 pg/mL (0-450); TROPONIN-I < 0.017 ng/mL (0.000-0.060)
[2017-01-15 15:22] VITALS: BP 141/68; BMI 21.0
[2017-01-15 15:30] VITALS: BP 143/68
--- NOTE | 2017-01-15 15:35 | NUR ---
PATIENT ARRIVED FROM ER. SOB WITH WHEEZING. O2 ON @ 3L. SEE ASSESSMENT FOR FURTHER INFO. WILL CONTINUE TO MONITOR
--- NOTE | 2017-01-15 16:41 | NUR ---
UP IN BED READING - DENIES ANY NEEDS
--- NOTE | 2017-01-15 19:44 | NUR ---
RESUMED CARE OF PT, 02-2L, IV-R. AC-SL, [id number], PT IS VISITING WITH FRIEND, DENIES ANY NEEDS, BED IS LOW, SRX2, CALL LIGHT IN REACH, WILL CONTINUE TO MONITOR
[2017-01-15 20:00] VITALS: BP 150/78
[2017-01-16] VITALS: BP 157/86
[2017-01-16 04:00] VITALS: BP 155/82
--- NOTE | 2017-01-16 05:15 | NUR ---
TAIL BOARD MAN AT BEDSIDE TO OBTAIN VITALS, CALL LIGHT IN REACH. WILL CONTINUE WITH PLAN OF CARE.
--- NOTE | 2017-01-16 07:49 | NUR ---
RECEIVED REPORT FROM NIGHT NURSE. PATIENT LYING QUIETLY IN BED . NO APPARENT DISTRESS. MONITOR SHOWS ST @ RATE OF 111. WILL CONTINUETO MONITOR
[2017-01-16 08:31] VITALS: BP 129/89
[2017-01-16 10:27] VITALS: Ht 157.5 cm; Wt 51.5 kg
--- NOTE | 2017-01-16 12:34 | NUR ---
PATIENT VISITING WITH FAMILY AND EATING LUNCH. WILL CONTINUE TO MONITOR.
[2017-01-16 12:47] VITALS: BP 138/66
--- NOTE | 2017-01-16 14:19 | NUR ---
AMBULATING IN COLIN WITH PT. BILLIE WELL. BUT SOB. WILL CONTINUE TO MONITOR.
--- NOTE | 2017-01-16 17:29 | NUR ---
Patient Name: WILLY LARRY Admission Status: ER Accout number: [id number] Admission Date: 01-15-2017 : 1930 Admission Diagnosis:DYSPNEA, UNSPECIFIED Attending: OZ Current LOS: 1 Anticipated DC Date: 01-19-2017 Planned Disposition: Half-Way Facility Primary Insurance: [facility] PLANNED EXTERNAL PROVIDER: [facility], MEDICARE REHAB BED Discharge Planning Comments: * Is the patient Alert and Oriented? Yes 0 * How many steps to enter\exit or inside your home? NONE 0 * PCP DR. SHIRLEY 0 * Pharmacy [facility] 0 * Preadmission Environment Home Alone 0 * ADLs Independent 0 * Equipment Cane Oxygen Walker 0 * Other Equipment HOME AND PORTABLE OXYGEN [facility] -MEDICAL EQUIPMENT PROVIDER PREFERENCE 0 * List name and contact numbers for known caregivers / representatives who currently or will assist patient after discharge: NABIL TERRAZAS, FRIEND, 0 * Community resources currently utilized Home Health 0 * Please name any agencies selected above. [facility], 0 * Additional services required to return to the preadmission environment? No 0 * Can the patient safely return to the preadmission environment? Yes 0 * Has this patient been hospitalized within the prior 30 days at any hospital? Yes 0 CM MET WITH PT IN ROOM TO DISCUSS DISCHARGE PLANNING AND NEEDS. PT REPORTS LIVING AT HOME INDEPENDENTLY AND ALONE. PT HAS ALL NEEDED MEDICAL EQUIPMENT FROM [facility]. PT HAS HOME HEALTH FROM [facility]. CM DISCUSSED AVAILABILITY OF HOME HEALTH, REHAB SERVICES AND MEDICAL EQUIPMENT. PT REPORTS PLAN TO ENTER INTO [facility] AT DISCHARGE AND REHAB UNTIL HER SON ARRIVES FROM OUT OF STATE TO ASSIST HER AT THE END OF NEXT WEEK. CHOICE SIGNED FOR [facility]. CM RECEIVED CALL FROM CASEY OF [facility], , WHO REPORTS THAT PT JUST LEFT REHAB ON 01-02-17; SHE CAN ACCEPT PT FOR REHAB ON 01-19-17. CM FAXED REFERRAL INFORMATION TO [facility] AT [phone]. [facility] PLANS TO ACCEPT PT ON 01-19-17, FOR REHAB. FOR DISCHARGE, NURSE REPORT TO BE CALLED TO [facility], ; FAX DISCHARGE INFORMATION TO [facility], . [facility] TO ARRANGE VAN TRANSPORT. Flight Radio Operator: George Sanders
[2017-01-16 18:07] VITALS: BP 127/64
[2017-01-16 19:00] VITALS: BP 142/74
--- NOTE | 2017-01-16 19:40 | NUR ---
RECEIVED REPORT FROM DAY NURSE, PT DENIES ANY NEEDS, BED IS LOW, CALL LIGHT IN REACH, WILL CONTINUE TO MONITOR
[2017-01-17] VITALS: BP 142/76
--- NOTE | 2017-01-17 01:21 | NUR ---
PT SLEEPING, BED IS LOW, SRX2, CALL LIGHT IN REACH
[2017-01-17 05:07] VITALS: BP 138/83
--- NOTE | 2017-01-17 07:38 | NUR ---
PT IN BED SITTING UP WATCHING TV AND PUTTING ON MAKEUP. IV TO RIGHT AC SALINE LOCKED. O2 AT 2 LITERS PER NC. DENIES PAIN AT THIS TIME. C/L IN REACH, WILL CONT TO MONITOR.
[2017-01-17 08:08] VITALS: BP 157/77
--- NOTE | 2017-01-17 10:18 | NUR ---
UP IN CHAIR WITH CALL LIGHT IN REACH. RESP UL ON . WILL CONT. PLAN OF CARE.
--- NOTE | 2017-01-17 10:20 | NUR ---
PT WAS UP IN CHAIR TAKING HER MEDICINE, STARTED HAVING COUGHING SPELL. PT WAS TRING TO SIPPING WATER AND LOOK FOR COUGH DROP, SHE STRTED GAGGING AND EVENTLY VOMITING. WAS ABLE TO GRAB TRASH TO KEEP FROM MAKING MESS. SHE WANTED TO HOLD OFF ON OTHER MEDICINE FOR A WHILE.
[2017-01-17 11:57] VITALS: BP 197/80
--- NOTE | 2017-01-17 14:35 | NUR ---
PT IN BED WORKING CROSSWORD PUZZLES. UP TO BSC WITH SBA. DENIES PAIN AT THIS TIME. WANTS TAKE NAP.WILL MONITOR.
[2017-01-17 16:07] VITALS: BP 132/76
--- NOTE | 2017-01-17 19:30 | NUR ---
SITTING UP IN BED WATCHING TV, UP TO BSC W/O DIFF. BILLIE WELL. VOICES NO C/O PAIN OR DISCOMFORT AT THIS TIME. O2 @ 3L VIA NC IN USE. TELEMETRY SHOWING HR ST, RT AC SL INTACT WITH NO R/S NOTED AT SITE. HOB UP SR UP X2, C/L IN REACH. CONTINUE TO MONITOR.
[2017-01-17 21:16] VITALS: BP 136/69
[2017-01-18 00:30] VITALS: BP 162/83
--- NOTE | 2017-01-18 02:21 | NUR ---
EYES CLOSED, RESP UNLAB WITH O2 @ 3L NC IN USE, NO S/S OF SOB NOTED AT THIS TIME. HOB UP SR UP X1, C/L IN REACH.CONTINUE TO MONITOR.
[2017-01-18 04:30] VITALS: BP 138/77
[2017-01-18 07:54] VITALS: BP 143/85
[2017-01-18 12:22] VITALS: BP 138/73
[2017-01-18 15:45] VITALS: BP 158/76
--- NOTE | 2017-01-18 19:30 | NUR ---
SITTING UP IN BED, ON PHONE, RESP UNLAB WITH O2 @ 3L NC IN PLACE, UP AD [place] TO BSC W/O DIFF. TELEMETRY IN PLACE SHOWING HR ST PER VIDEO ENGINEER. ON LOVENOX INJECTIONS TO PREVENT BLOOD CLOTS. HOB UP SR UP X2, C/L IN REACH. CONTINUE TO MONITOR.
[2017-01-18 20:00] VITALS: BP 112/90
[2017-01-19] VITALS: BP 177/99
--- NOTE | 2017-01-19 00:30 | NUR ---
EYES CLOSED, RESP UNLAB WITH NO S/S OF ACUTE DISTRESS NOTED. HOB UP SR UP X2, C/L IN REACH, CONTINUE TO MONITOR. TELEMETRY SHOWING HR 61 AFIB PER MONITOR,
--- NOTE | 2017-01-19 07:26 | NUR ---
AM ROUNDING- RECEIVED REPORT FROM MARIE RODAS (SPLICER OPERATOR NURSE). PT IS CURRENTLY LAYING IN BED ON BACK WITH HOB ELEVATED AT [address] SHIRLEY IN ROOM CURRENTLY. ON MONITOR SHOWING SR, HR 92. ON 02 AT 3L VIA NC. IV SEEN TO RIGHT AC THAT IS CURRENTLY SALINE LOCKED. ON LOVENOX INJECTION FOR DVT PREVENTON PER REPORT. UP AD [place]. ALERT AND ORIENTED. NO NEED AT CURRENT TIME. PT IS AWAITING D/C. WILL CONTINUE TO MONITOR AND CONTINUE WITH PLAN OF CARE.
[2017-01-19] MEDS ORDERED: VIBRAMYCIN 100100 MG PO (07:44)
--- NOTE | 2017-01-19 07:56 | NUR ---
0715- AM ROUNDING- RECEIVED REPORT FROM DENNIS RODAS (SENIOR ENERGY CONSULTANT NURSE). PT IS CURRENTLY LAYING IN BED ON BACK WITH HOB ELEVATED AT [address] SHIRLEY IS CURRENTLY IN ROOM. ON MONITOR SHOWING SR, HR 92. ON 02 AT 3L VIA NC. IV SEEN TO RIGHT AC THAT IS CURRENTLY SALINE LOCKED. ON LOVENOX INJECTION FOR DVT PREVENTION. PT IS UP AD [place]. ALERT AND ORIENTED. NO NEED AT CURRENT TIME. PT IS AWAITING D/C. WILL CONTINUE TO MONITOR AND CONTINUE WITH PLAN OF CARE.
[2017-01-19 08:50] VITALS: BP 144/83
--- NOTE | 2017-01-19 09:53 | NUR ---
Patient Name: WILLY LARRY Encounter No: [id number] : 1930 Primary Insurance: [facility] ADVANTAGE [facility] PFF[facility] Anticipated DC Date: 01-19-2017 Planned Disposition: Residential Facility External Planned Provider: [facility], MEDICARE REHAB BED DCP follow-up note: CM RECEIVED DISCHARGE ORDER, MET WITH PT IN ROOM WHO IS IN AGREEMENT WITH DISCHARGE TODAY TO [facility], REQUESTED VAN FINANCE ATTORNEY. IMPORTANT MESSAGE FROM MEDICARE PROVIDED AND EXPLAINED. CM UNABLE TO ARRANGE THE WALKER WITH SEAT FOR HOME PT IS GOING TO REHAB. CM EXPLAINED TO PT THAT ALL HOME NEEDS WILL BE ARRANGED FROM REHAB WHEN SHE DISCHARGES FROM THERE. PT REPORTED UNDERSTANDING. CM CALLED AND SPOKE TO HIREN OF [facility], , WHO REPORTS THAT [facility] WILL ACCEPT PT TODAY. [employer] FAXED DISCHARGE INFORMATION TO [facility] AT [phone]. HIREN WILL CALL SHORTLY WITH VAN FINANCE ATTORNEY TIME. FOR DISCHARGE, NURSE REPORT TO BE CALLED TO [facility], ; [facility] TO ARRANGE VAN TRANSPORT AND WILL CALL WITH VAN FINANCE ATTORNEY TIME. Backrest Assembler: George Sanders
--- NOTE | 2017-01-19 11:22 | NUR ---
1015- D/C INSTRUCTIONS EXPLAINED TO PT. D/C PAPERWORK SIGNED BY PT AND PLACED IN CHART. HEART MONITOR REMOVED. IV TO RIGHT AC REMOVED WITH CATH TIP INTACT, COVERED WITH 2X2 GUAZE PADS AND SECURED WITH TAPE. TOLERATED WELL. CLINTON LOWERY GATHERED PTS BELONGINGS. [facility]. WILL CONTINUE TO MONITOR. 1115- PT D/C VIA [facility] WITH [facility] STAFF MEMBER ON AT 2L.
[2017-01-20 03:10] LABS: MYCOPLASMA PNEUMO IGG 133 U/mL (0-99)
== END 2017-01-19 11:28 | DRG 196 ==
LOC: D.ER 10:02 → D.SDCHOLD 12:36 → D.M2 12:36
PROVIDERS: Family Medicine; Internal Medicine Pulmonary Disease; ADMIT Family Medicine
DX: J84.10 Pulmonary fibrosis, unspecified (principal); J96.21 Acute and chronic respiratory failure with hypoxia; I10 Essential (primary) hypertension; M34.9 Systemic sclerosis, unspecified; I08.2 Rheumatic disorders of both aortic and tricuspid valves

== ENCOUNTER 2017-04-19 12:45 | Inpatient (IN) | payer MEDICARE ==
[~2017-04-19] VITALS: Ht 157.5 cm; Wt 45.4 kg
[~2017-04-19 12:45] MED LIST changes: +VIBRAMYCIN 100100 MG PO
[2017-04-19 15:22] LABS: BASOPHILS 0.1 % (0-2); EOSINOPHILS 0.1 % (0-7); HEMATOCRIT 34.7 % (36.0-48.0); HEMOGLOBIN 10.8 g/dL (12-16); IMMATURE GRANULOCYTES 0.2 % (0-5); LYMPHOCYTES 3.8 % (15-50); MCH 27.6 pg (26.0-34.0); MCHC 31.1 g/dL (31.0-37.0); MCV 88.7 fL (80.0-100.0); MEAN PLATELET VOLUME 8.5 fL (7.4-10.4); MONOCYTES 5.1 % (2-11); NEUTROPHILS 90.7 % (40-80); PLATELET COUNT 233 10x3/uL (130-400); RBC 3.91 10x6/uL (4.00-5.40); RDW 16.9 % (11.5-14.5); WBC 8.7 10x3/uL (4.8-10.8)
[2017-04-19 15:36] LABS: ALBUMIN 2.6 g/dL (3.4-5.0); ALKALINE PHOSPHATASE 67 U/L (46-116); ALT (SGPT) 19 U/L (10-68); CALC OSMOLALITY 269 mosm/kg (275-300); CARBON DIOXIDE 33.9 mmol/L (21.0-32.0); CHLORIDE - SERUM 97 mmol/L (98-107); CREATININE - SERUM 1.3 mg/dL (0.6-1.3); POTASSIUM - SERUM 4.6 mmol/L (3.5-5.1); SODIUM 133 mmol/L (136-145); UREA NITROGEN 15 mg/dL (7-18); eGFR NON AFRICAN AMERICAN 41 mL/min (90-120)
[2017-04-19 15:37] LABS: GLUCOSE 156 mg/dL (74-106)
[2017-04-19 15:49] LABS: CKMB 1.1 U/L (0.0-3.6); CREATINE KINASE 33 UL (21-215); PRO BNP 879 pg/mL (0-450); TROPONIN-I < 0.017 ng/mL (0.000-0.060)
[2017-04-19] MEDS ORDERED: PROAIR HFA8.5 GM INH (18:32)
--- NOTE | 2017-04-19 18:45 | NUR ---
RECEIVED TO ROOM 2215 FROM ER VIA BED. TRANSFERRED TO BED. CALL LIGHT IN REACH.
[2017-04-19 20:00] VITALS: BP 138/78
--- NOTE | 2017-04-19 20:00 | NUR ---
ASSESSMENT PER ADMIT PACK.FAMILY/CAREGIVER TO TAKE HER RINGS AND WATCH HOME. PT WILL KEEP HER HEARING AIDS HERE.FALL PREVENTION INITIATED WITH PRECIOUS HERNANDEZ.CALL LIGHT IN REACH
[2017-04-19 20:49] VITALS: BP 138/78; BMI 18.3
[2017-04-20] VITALS: BP 144/72
--- NOTE | 2017-04-20 00:11 | NUR ---
STILL AWAKE WITHOUUT DISTRESS.SHE HAS BEEN ON PHONE MOST OF NIGHT.MONITOR FOR NEEDS.DOOR OPEN
--- NOTE | 2017-04-20 03:04 | NUR ---
RESTING WITHOUT SIGNS OF DISTRESS.CONT TO MONITOR.DOOR OPEN
[2017-04-20 04:00] VITALS: BP 112/71
[2017-04-20 04:56] LABS: BASOPHILS 0.3 % (0-2); EOSINOPHILS 0.8 % (0-7); HEMATOCRIT 30.2 % (36.0-48.0); HEMOGLOBIN 9.5 g/dL (12-16); IMMATURE GRANULOCYTES 0.2 % (0-5); LYMPHOCYTES 7.4 % (15-50); MCH 27.4 pg (26.0-34.0); MCHC 31.5 g/dL (31.0-37.0); MEAN PLATELET VOLUME 8.8 fL (7.4-10.4); MONOCYTES 8.3 % (2-11); PLATELET COUNT 211 10x3/uL (130-400); RBC 3.47 10x6/uL (4.00-5.40); RDW 16.9 % (11.5-14.5)
[2017-04-20 05:00] LABS: WBC 6.2 10x3/uL (4.8-10.8)
[2017-04-20 05:19] LABS: CALCIUM 8.9 mg/dL (8.5-10.1); CARBON DIOXIDE 30.2 mmol/L (21.0-32.0); CREATININE - SERUM 1.2 mg/dL (0.6-1.3); POTASSIUM - SERUM 4.2 mmol/L (3.5-5.1)
--- NOTE | 2017-04-20 06:11 | NUR ---
HAS REMAINED WITHOUT DISTRESS DURING NIGHT.REMAINS WITHOUT CHANGE FROM INITIAL SHIFT ASSESSMENT.CONT PLAN OF CARE
--- NOTE | 2017-04-20 07:30 | NUR ---
PATIENT RECEIVED ALERT IN HIGH GUIDRY POSITION WATCHING TV. NO SIGNS OF DISTRESS NOTED. DENIES NEEDS. SIDE RAILS UP X2. BED IN LOW POSITION. CALL LIGHT IN REACH.
--- NOTE | 2017-04-20 08:43 | NUR ---
PATIENT ALERT IN HIGH GUIDRY POSITION. NO SIGNS OF DISTRESS NOTED. SCHEDULED MEDICATION ADMINISTERED. DENIES NEEDS. SIDE RAILS UP X2. BED IN LOW POSITION. CALL LIGHT IN REACH.
[2017-04-20 09:35] VITALS: BP 157/82
[2017-04-20 11:49] VITALS: BP 135/78
--- NOTE | 2017-04-20 12:07 | NUR ---
PATIENT IN MID GUIDRY POSITION RESTING WITH EYES CLOSED. RESPIRATIONS EVEN AND UNLABORED. WAKES EASY. SCHEDULED MEDICATION ADMINISTERED. SIDE RAILS UP X2. BED IN LOW POSITION. CALL LIGHT IN REACH. DENIES NEEDS.
[2017-04-20 13:20] VITALS: Ht 157.5 cm; Wt 45.4 kg
--- NOTE | 2017-04-20 15:40 | NUR ---
PATIENT ALERT IN BED VISITING WITH GUEST. NO SIGNS OF DISTRESS NOTED. SIDE RAILS UP X2. BED IN LOW POSITION. CALL LIGHT IN REACH.
[2017-04-20 16:29] VITALS: BP 120/69
[2017-04-20 20:00] VITALS: BP 135/78
[2017-04-21] VITALS: BP 129/70
--- NOTE | 2017-04-21 00:35 | NUR ---
ASSISTED THE PATIENT ON AND OFF OF THE BSC AND SET THE PATIENT UP TO BRUSH HER TEETH. PATIENT DENIES OTHER NEEDS AT THIS TIME. BED IN THE LOWEST POSITION AND CALL LIGHT WITHIN REACH. ENCOURAGED THE PATIENT TO CALL IF SHE HAS NEEDS.
[2017-04-21 04:00] VITALS: BP 139/80
[2017-04-21 05:37] LABS: BASOPHILS 0 % (0-2); EOSINOPHILS 0 % (0-7); HEMATOCRIT 28.2 % (36.0-48.0); IMMATURE GRANULOCYTES 0.2 % (0-5); LYMPHOCYTES 5.9 % (15-50); MCHC 31.9 g/dL (31.0-37.0); MCV 87.9 fL (80.0-100.0); MEAN PLATELET VOLUME 9.1 fL (7.4-10.4); MONOCYTES 3.1 % (2-11); NEUTROPHILS 90.8 % (40-80); PLATELET COUNT 209 10x3/uL (130-400); RBC 3.21 10x6/uL (4.00-5.40); RDW 16.9 % (11.5-14.5)
[2017-04-21 05:41] LABS: WBC 4.6 10x3/uL (4.8-10.8)
[2017-04-21 06:01] LABS: ANION GAP 9.8 mmol/L (8-16); CALCIUM 8.4 mg/dL (8.5-10.1); CARBON DIOXIDE 29.6 mmol/L (21.0-32.0); CREATININE - SERUM 1.2 mg/dL (0.6-1.3); MAGNESIUM - SERUM 2.2 mg/dL (1.8-2.4); PHOSPHOROUS 2.8 mg/dL (2.5-4.9); POTASSIUM - SERUM 4.4 mmol/L (3.5-5.1)
--- NOTE | 2017-04-21 07:00 | NUR ---
PATIENT RECEIVED ALERT IN MID GUIDRY POSITION. NO SIGNS OF DISTRESS NOTED. DENIES NEEDS. SIDE RAILS UP X2. BED IN LOW POSITION. CALL LIGHT IN REACH.
--- NOTE | 2017-04-21 08:05 | NUR ---
PATIENT ALERT IN BED. NO SIGNS OF DISTRESS NOTED. SCHEDULED MEDICATION ADMINISTERED. SIDE RAILS UP X2. BED IN LOW POSITION. CALL LIGHT IN REACH.
[2017-04-21 09:30] VITALS: BP 151/76
[2017-04-21 10:25] LABS: % SATURATION 8 % (15-55); IRON 15 ug/dl (35-150); TOTAL IRON BIND CAPACITY 168 ug/dl (260-445); UNSAT IRON BIND CAPACITY 153 ug/dl (150-375)
[2017-04-21 10:46] LABS: FERRITIN 108 ng/mL (3-244); LDH 200 U/L (81-234)
--- NOTE | 2017-04-21 11:00 | NUR ---
IV TO LEFT FOREARM SALINE LOCKED. PATIENT ALERT IN BED. NO SIGNS OF DISTRESS NOTED. SIDE RAILS UP X2. BED IN LOW POSITION. CALL LIGHT IN REACH.
[2017-04-21 13:54] VITALS: BP 140/63
--- NOTE | 2017-04-21 14:24 | NUR ---
PATIENT ALERT IN HIGH GUIDRY POSITION. NO SIGNS OF DISTRESS NOTED. DENIES NEEDS. SIDE RAILS UP X2. BED IN LOW POSITION. CALL LIGHT IN REACH.
[2017-04-21 16:23] VITALS: BP 127/70
--- NOTE | 2017-04-21 16:35 | NUR ---
PATIENT ALERT IN BED AND VERY SOB. O2 SAT REMAINING BETWEEN 80% TO 88% 0XYGEN 5L ON NASAL CANNULA. DR HENRY NOTIFIED NEW ORDERS RECEIVED. RT AT BEDSIDE. 15L OXYMIZER PLACED ON PATIENT. O2 SAT INCREASED TO 98% WILL CONTINUE TO MONITOR.
--- NOTE | 2017-04-21 17:20 | NUR ---
PATIENT 96% ON 7L OXYMIZER. IV ABX INITIATED PER ORDERS. IV TO LEFT FOREARM PATENT. FLUSHES EASY, NO REDNESS OR INFLAMMATION NOTED. SIDE RAILS UP X2. BED IN LOW POSITION. CALL LIGHT IN REACH.
--- NOTE | 2017-04-21 19:40 | NUR ---
PATIENT RESTING IN BED AND REQUESTED ICE WATER. PATIENT DENIES OTHER NEEDS AT THIS TIME. BED IN LOWEST POSITION AND CALL LIGHT WITHIN REACH. ENCOURAGED THE PATIENT TO CALL IF SHE HAS NEEDS.
[2017-04-21 20:00] VITALS: BP 121/59
[2017-04-22] VITALS: BP 121/69
[2017-04-22 04:00] VITALS: BP 121/63
--- NOTE | 2017-04-22 07:00 | NUR ---
PATIENT RECEIVED IN MID GUIDRY POSITION RESTING WITH EYES CLOSED. RESPIRATIONS EVEN AND UNLABORED. SIDE RAILS UP X2. BED IN LOW POSITION. CALL LIGHT IN REACH.
[2017-04-22 08:51] VITALS: BP 127/73
--- NOTE | 2017-04-22 09:05 | NUR ---
ALERT IN BED READING NEWSPAPER. NO SIGNS OF DISTRESS NOTED. SCHEDULED MEDICATION ADMINISTERED. SIDE RAILS UP X2. BED IN LOW POSITION. CALL LIGHT IN REACH.
--- NOTE | 2017-04-22 10:48 | NUR ---
* Is the patient Alert and Oriented? Yes 0 * PCP [facility] 0 * Pharmacy [facility] 0 * Preadmission Environment Home Alone 0 * ADLs Partial Dependent 0 * Partial ADLs (Assistance needed) Medication Management 0 * Equipment Elevated [place] Seat Oxygen Rolling Walker Shower Chair Walker Wheelchair 0 * List name and contact numbers for known caregivers / representatives who currently or will assist patient after discharge: [employer] 8 HOURS A DAY [facility] [phone] 0 * Community resources currently utilized Private Duty Care 0 * Please name any agencies selected above. [employer] 8 HOURS A DAY [facility] [phone] 0 * Additional services required to return to the preadmission environment? Yes 0 * Can the patient safely return to the preadmission environment? Yes 0 * Has this patient been hospitalized within the prior 30 days at any hospital? No 0 Grand Total: 0 Patient Name: WILLY LARRY Admission Status: ER Accout number: [id number] Admission Date: 04-19-2017 : 1930 Admission Diagnosis:PNEUMONIA, UNSPECIFIED ORGANISM Attending: OZ Current LOS: 3 Anticipated DC Date: Planned Disposition: Home Primary Insurance: [employer] [facility] Discharge Planning Comments: CM met with patient to assess discharge planning needs. Patient currently lives home alone where she has a caregivers non medical company come in 8 hours a day throughout the day. I spoke with one of her care companions [facility] ([phone]) who states that she is very independent. She has a walk in tub, and oxygen that she uses at night. She has a wheelchair and a walker and everything she might need. Linnea will be the one to pick her up when the time comes CM will continue to follow and assist as needed PCP : [facility] [place]: [phone] Bread Jockey: Gely Gauthier
[2017-04-22 13:04] VITALS: BP 154/89
[2017-04-22 16:38] VITALS: BP 129/73
--- NOTE | 2017-04-22 17:00 | NUR ---
PATIENT REPOSITIONED IN BED. WELL TOLERATED. DINNER TRAY SET UP. SIDE RAILS UP X2. BED IN LOW POSITION. CALL LIGHT IN REACH.
--- NOTE | 2017-04-22 19:30 | NUR ---
PATIENT RESTING IN BED AND DENIES NEEDS AT THIS TIME. BED IN LOWEST POSITION AND CALL LIGHT WITHIN REACH. ENCOURAGED THE PATIENT TO CALL IF SHE HAS NEEDS.
[2017-04-22 20:00] VITALS: BP 132/85
[2017-04-23] VITALS: BP 157/87
[2017-04-23 04:00] VITALS: BP 116/56
--- NOTE | 2017-04-23 04:07 | NUR ---
NOTIFIED BY CLINTON MORLEY THAT THE PATIENT'S IV APPEARED TO BE LEAKING. UPON ASSESSING THE PATIENT'S IV SITE THERE IS NO SWELLING OR PAIN, HOWEVER, THE PATIENT'S IV IS LEAKING. I RESITED THE PATIENT'S IV TO THE RIGHT FA WITH A 22G ON THE FIRST ATTEMPT.
--- NOTE | 2017-04-23 07:30 | NUR ---
ASSESSMENT COMPLETE. SL TO R FA. O2 5L PER OXIMIZER. [place]. SOB ON EXERTION. DENIES ANY NEEDS AT PRESENT.
[2017-04-23 08:26] VITALS: BP 135/79
[2017-04-23 09:52] LABS: FOLATE (FOLIC ACID) - SERUM 19.9 ng/mL (>3.0)
[2017-04-23 12:14] LABS: HAPTOGLOBIN 405 mg/dL (34-200)
[2017-04-23 12:46] VITALS: BP 146/84
--- NOTE | 2017-04-23 15:43 | NUR ---
NO CHANGES NOTED AT PRESENT.
[2017-04-23 16:11] VITALS: BP 151/81
--- NOTE | 2017-04-23 18:56 | NUR ---
NO CHANGES NOTED AT PRESENT.
[2017-04-23 20:00] VITALS: BP 140/74
[2017-04-24] VITALS: BP 155/67
[2017-04-24 04:00] VITALS: BP 149/71
--- NOTE | 2017-04-24 04:10 | NUR ---
ASSESSED AT THE BEGINNING OF THE SHIFT. PT IS ALERT AND ORIENTED, ABLE TO VERBALIZE NEEDS. SHE IS BEING ASSISTED UP TO THE BSC TO USE THE BATHROOM WITH MININAL ASSIST. MORE FOR SAFTEY. SHE IS WEARING AN OXIMIZER AT 5 LITERS AND WHEN WE GET HER UP SHE BECOMES VERY SOB FOR A WHILE. SHE IS A LITTLE HARD OF HEARING BUT DOES WELL WITH US RAISING OUR VOICES. THE BED IS LOW, RAILS UP X'S 2 WITH THE CALL LIGHT AT HAND.
[2017-04-24] MEDS ORDERED: OMNICEF300 MG PO (07:33)
[2017-04-24] MEDS ORDERED: VIBRAMYCIN 100100 MG PO (07:34)
[2017-04-24] MEDS ORDERED: PREDNISONE20 MG PO (07:37)
[2017-04-24 07:59] VITALS: BP 152/69
--- NOTE | 2017-04-24 09:58 | NUR ---
CM spoke with patient and ambulatory care [facility] about patient being discharged home today. Linnea is aware and will be here at 1:00 to take patient home. I spoke with Wallace at [facility] about patients Home O2 where she gets her oxygen. He is aware of the new order and will make sure she has the correct supplies at home. Patient is also set up with [facility] . I called and left messaged about referral. IMM served. CM will continue to follow and assist as needed.
--- NOTE | 2017-04-24 11:15 | NUR ---
ALERTED BY CLINTON PATEL, OF BP 198/66. STATES THE PT HAD JUST RETURNED FROM THE BSC. RECHECKED MANUALLY AND GOT 150/60. WILL CONTINUE TO MONITOR.
[2017-04-24 12:00] VITALS: BP 150/60
--- NOTE | 2017-04-24 14:07 | NUR ---
PIV TO R FA DC'D WITH CATHETER INTACT. AWAITING CAREGIVER TO RETURN BEFORE DISCHARGE INSTRUCTIONS ARE REVIEWED PER PT REQUEST.
--- NOTE | 2017-04-24 15:50 | NUR ---
DISCHARGE INSTRUCTIONS REVIEWED WITH PATIENT AND CAREGIVER AT THIS TIME. NO QUESTIONS OR CONCERNS VOICED AT THIS TIME. ESCORETED OUT VIA WC.
== END 2017-04-24 15:54 | disposition home health service (06) | DRG 177 ==
LOC: D.ER 12:45 → D.MS 16:55
PROVIDERS: Family Medicine; Internal Medicine Pulmonary Disease; ADMIT Family Medicine
DX: J15.6 Pneumonia due to other Gram-negative bacteria (principal); J96.21 Acute and chronic respiratory failure with hypoxia; J15.212 Pneumonia due to Methicillin resistant Staphylococcus aureus; J84.112 Idiopathic pulmonary fibrosis; J45.909 Unspecified asthma, uncomplicated; H91.90 Unspecified hearing loss, unspecified ear; D50.9 Iron deficiency anemia, unspecified; M34.9 Systemic sclerosis, unspecified; F41.9 Anxiety disorder, unspecified; I08.2 Rheumatic disorders of both aortic and tricuspid valves; I10 Essential (primary) hypertension